=== PATIENT | female | born 1985 ===

== ENCOUNTER 2018-06-16 04:29 | Inpatient (IN) | payer MEDICAID ==
[2018-06-16 05:14] VITALS: BMI 25.6
[2018-06-16] MEDS ORDERED: Phenaphthazine-PH Test Paper VI ONE (05:27)
[2018-06-16] MEDS ORDERED: Penicillin G Potassium 5 MU in Sodium Chloride 0.9% 50 ML IVPB ONE (05:48)
[2018-06-16] MEDS ORDERED: Oxytocin 30 units/LR 500ML 30 U/500 ML BAG IV ONE ×2 (05:48→06:40)
[2018-06-16] MEDS ORDERED: Tdap Vaccine 0.5 ml Vial (10-64 yrs) IM ONE (05:58)
[2018-06-16] MEDS ORDERED: Penicillin G 5 Million Unit Vial IVPB ONE (06:45)
[2018-06-16 07:08] VITALS: RESP 20; O2SAT 100
[2018-06-16 07:14] LABS: BASO % 0.4 % (0.0-2.0); EOS # 0.5 K/uL (0.0-0.7); EOS % 4.2 % (0.0-4.0); HEMOGLOBIN 11.6 g/dL (12.0-16.0); LYMPH # 2.2 K/uL (1.0-4.3); MEAN CORPUSCULAR HEMOGLOBIN 24.2 pg (27.0-31.0); MEAN CORPUSCULAR HGB CONC 32.2 g/dL (33.0-37.0); MEAN PLATELET VOLUME 9.2 fl (7.2-11.7); MONO # 0.7 K/uL (0.0-0.8); MONO % 5.9 % (0.0-10.0); NEUT # 8.9 K/uL (1.8-7.0); NEUT % 71.5 % (50.0-75.0); RBC 4.79 Mil/uL (3.80-5.20); RED CELL DISTRIBUTION WIDTH 22.7 % (11.5-14.5); WHITE BLOOD COUNT 12.4 K/uL (4.8-10.8)
[2018-06-16] MEDS ORDERED: Lactated Ringer's 1,000 ML IV SCH ×2 (07:30→17:38)
--- NOTE | 2018-06-16 08:47 | OBPN ---
Datetime: 06/16/2018 08:40 IP Progress Impression: Normal progression of labor; Reassuring heart rate IP Procedures: Sterile Vag Exam Membranes, Provider: Ruptured Amniotic Fluid Color, Provider: Clear Contraction Comments Provider: Q2-5 FHR - Baseline A Provider: 130 Gestation - Est Wks by US: 39.5 Presentation-Admit: Vertex IP Progress Note Comment: Pt reports feeling some [elvic cramps. Feels good movements O: Appears well Chest: CTA B/L Abd: Soft, Nt, BS- presents. SVE: 5-6/70/-3, VTx Assessment: IUP at 39weeks SROM Previous C/S X1, X3 requesting a repeat Reassuring FHR. Plan: Continue monitoring the progress of labor. NICHD Accel Fetus A IP Provider: 15X15 FHR Category Provider Fetus A: Category I NICHD Variability Prov Fetus A: Moderate 6-25bpm Dilatation, Provider: 5-6 Effacement, Provider: 70 Station, Provider: -3 NICHD Decel Fetus A IP Provider: None Datetime: 06/16/2018 05:16 Pool Provider: Positive Vital Signs Provider: Reviewed; Within Normal Limits
--- NOTE | 2018-06-16 08:53 | OBADHP ---
Datetime: 06/16/2018 08:40 Presentation-Admit: Vertex FHR - Baseline A Provider: 130 Amniotic Fluid Color, Provider: Clear Membranes, Provider: Ruptured Contraction Comments Provider: Q2-5 Gestation - Est Wks by US: 39.5 NICHD Variability Prov Fetus A: Moderate 6-25bpm NICHD Accel Fetus A IP Provider: 15X15 FHR Category Provider Fetus A: Category I NICHD Decel Fetus A IP Provider: None Dilatation, Provider: 5-6 Effacement, Provider: 70 Station, Provider: -3 Datetime: 06/16/2018 05:16 Admit Comment, IP Provider: 33 yo 39.5wk based on LINSEY 06/18/18, confirmed by LMP 09/21/17 and U/S 01/25/18. Patient states she has been having painful contractions since 2am and she felt a gush of flush. Denies vaginal bleeding. Reports good movement. Dr. Leesa Rollins is her doctor at [facility]. Patients goal is to deliver without an epidural. Denies headache, blurry, vision, SOB,Chest pain, NVDC, pain with urination. 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 PMHx- Varicose veins, Anemia Meds- Prenatals, Fe Allergies- Asprin- lip swelling FHx: None Social Hx: Denies smoking, drugs or alcohol Surg Hx: C- section 2010 Hosp: None A/P 39.5wk IUP here for contractions since 2 am and SROM r/o active labor Previous Section X1, X3, Requesting a repeat Plan: Admit to LND Consent - Montior Monitor the progress of labor. Courtney Stiles PGY-1 Reviewed and examined with Dr. Russell Attending Note: Patient was seen and examined with the resident and I agree with the above assessment. Extremities - PN: Abnormal Abdomen - PN: Normal Lungs - PN: Normal Heart - PN: Normal HEENT - PN: Normal General - PN: Normal Comments, ACOG Physical Exam: -Right LE foot swelling L>R -Varicose veins - Vaginal growth on outer R labia Pool Provider: Positive IP Hx Assessment: The History has been Reviewed and is Current Vital Signs Provider: Reviewed; Within Normal Limits IP Chief Complaint: Uterine contractions; Suspected ruptured membranes; Maternal discomfort EGA AdmitDate IP: 39.5 IP Adm Impression: Term, intrauterine ; Ruptured Membranes IP Admit Plan: Admit to unit; Initiate labor protocol; Initiate protocol
[2018-06-16] MEDS ORDERED: ceFAZolin IV 2 gm in Dextrose 2 GM/50 ML BAG IVPB ONE ×2 (12:18→12:19)
[2018-06-16] MEDS ORDERED: Lactated Ringer's 1,000 ML IV ONE (12:29)
--- NOTE | 2018-06-16 12:32 | OBPN ---
Datetime: 06/16/2018 12:25 IP Progress Impression Other: Loss of Presentation IP Progress Impression: Reassuring heart rate; Rupture of membranes IP Procedures: Sterile Vag Exam IP Progress Plan: Deliver- Section Contraction Comments Provider: Q 2-4 FHR - Baseline A Provider: 140s IP Progress Note Comment: Patient reported feeling some pelvic cramps but intensity have gone down. FHR- Category 1 TOCO - Q 2-3 SVE: 6/presenting part not felt at this time/ Possibility of impending uterine scar rupture. The risks and benefits of delivery of the baby offered at this time. Patient consents to delivery and signs a consent form. Plan Prepare for Section. consents NICHD Accel Fetus A IP Provider: 15X15 FHR Category Provider Fetus A: Category I NICHD Variability Prov Fetus A: Moderate 6-25bpm Dilatation, Provider: 6 Effacement, Provider: 80 NICHD Decel Fetus A IP Provider: None
[2018-06-16] MEDS ORDERED: Morphine 1 mg/ml preservative-free Inj(Duramorph) ONE (12:38)
[2018-06-16] MEDS ORDERED: DiphenhydrAMINE 50 mg/ml Inj IVP PRN ×2 (13:35→17:38)
[2018-06-16] MEDS ORDERED: Morphine 1 mg/ml preservative-free Inj(Duramorph) IT ONE ×2 (13:35→17:38)
[2018-06-16] MEDS ORDERED: Cellulose Hemostat 2X3 Sheet ONE (13:53)
[2018-06-16] MEDS ORDERED: Morphine 5 mg/10 ml preservative-free Inj(Duramorph) ONE (14:20)
--- NOTE | 2018-06-16 14:46 | OBDS ---
DELIVERY PERSONNEL Delivery Doctor: Ernestina Russell MD Scrub Nurse: Gretta Dupont OBT Medical Diagnostic Radiographer: Laurel Fisher RN Anesthesiologist: Dr. Rodriguez Resident: Dr. Mendez MATERNAL INFORMATION Delivery Anesthesia: Spinal Medications in Delivery: Pitocin 20 units Maternal Complications: None Provider Comments: Repeat Section with delivery of a viable female with BW of 2770gm s and score of 9 and 9. Baby delivered in the left occipitoposterior positioning. Two broad adh esive bands between the ant uterus and abdominal wall seperated. EBL- 600mls Patient tolerated the procedure well. LABOR SUMMARY EDC: 06/18/2018 00:00 No. Babies in Womb: 1 Attempted: Yes Labor Anesthesia: None LABOR INFORMATION Reason for Induction: Not Applicable Oxytocin: N/A Group B Beta Strep: Done, Result Unknown Steroids Given: None Reason Steroids Not Administered: Not Applicable MEMBRANES Membranes Rupture Method: Spontaneous Rupture of Membranes: 06/16/2018 04:00 Length of Rupture (hrs): 9.35 Amniotic Fluid Color: Clear Amniotic Fluid Amount: Small Amniotic Fluid Odor: None STAGES OF LABOR Stage 3 hrs: 0 Stage 3 min: 1 CSECTION DELIVERY Primary Indication: Other Other Primary Indication: Failed - loss of presentation CSection Urgency: Emergency CSection Incidence: Repeat Labor: Labor Elective: Failed CSection Incision: Lower Uterine Transverse Uterine Closure: Double-layer closure BABY A INFORMATION Delivery Date/Time: 06/16/2018 13:21 Method of Delivery: Born in Route : No : Failed Forceps: N/A Vacuum Extraction: N/A Shoulder Dystocia : No SHOULDER DYSTOCIA BABY A Delivery Date/Time: 06/16/2018 13:21 PRESENTATION/POSITION BABY A Presentation: Cephalic Cephalic Presentation: Vertex PLACENTA INFORMATION BABY A Placenta Delivery Time : 06/16/2018 13:22 Placenta Method of Delivery: Spontaneous Placenta Status: Delivered SCORES BABY A Heart Rate 1 min: >100 bpm Resp Effort 1 min: Good Cry Reflex Irritability 1 min: Cough or Sneeze or Pulls Away Muscle Tone 1 min: Active Motion Color 1 min: Body [place], Extremities Blue Resuscitation Effort 1 min: Tactile Stimulation SCORE 1 MIN: 9 Heart Rate 5 min: >100 bpm Resp Effort 5 min: Good Cry Reflex Irritability 5 min: Cough or Sneeze or Pulls Away Muscle Tone 5 min: Active Motion Color 5 min: Body [place], Extremities Blue SCORE 5 MIN: 9 INFANT INFORMATION BABY A Gestational Age at Delivery: 39.0 Gestational Status: Term Infant Outcome : Liveborn Condition : Stable Sex: Female IDENTIFICATION/MEDS BABY A ID Band Number: [id number] ID Band Location: Left Leg; Left Arm WEIGHT/LENGTH BABY A Infant Birthweight (gms): 2770 Weight (lb): 6 Weight (oz): 2 CORD INFORMATION BABY A No. Cord Vessels: 3 Nuchal Cord : N/A Cord Blood Taken: N/A Infant Suction: None ASSESSMENT BABY A Complications: None Physical Findings at Delivery: Within Normal Limits Respirations: Appears Normal Final Block Press Operator/ALS Called : No Infant Care By: Selina Hanley Transferred To: [facility]
--- NOTE | 2018-06-16 14:52 | PCM.SURG1 ---
Surgeon's Initial Post Op Note - Surgeon's Notes Surgeon: Dr Russell Boiler Shop Supervisor: Dr Chirinos( Family Practice Resident)Cheryl Type of Anesthesia: Spinal Anesthesia Administered By: Dr Rodriguez Pre-Operative Diagnosis: IUP at 39.5wks, previous c/s, Failed with inaccessible presentation Operative Findings: Live female infant with BW of 2770gm and scores of 9 and 9 delivered in the left occipitoposterior position, thin lower uterine segment, clear amniotic fluid, fundal placenta. Two broad adhesive bands betwwen the anterior surface of the uterus and the anterior abdominal wall preventing the exteriorization of the uterus. These were seperated after repair of uterine incision. Uterus, bilateral ovaries and fallopian tubes appeared normal. IV Fluid intake 2100mls. EBL - 600mls. Urine Output 700mls Post-Operative Diagnosis: Same as preop diagnosis Operation Performed: Repeat Low transverse Section. Release of Pelvic Adhesions Specimen/Specimens Removed: Umbilical cord blood Estimated Blood Loss: EBL {In ML}: 600 Blood Products Given: N/A Post-Op Condition: Good Date of Surgery/Procedure: 06/16/18 Time of Surgery/Procedure: 14:59
--- NOTE | 2018-06-17 02:34 | OP ---
PROCEDURE DATE: 06/16/2018 PREOPERATIVE DIAGNOSIS: Intrauterine at 39 weeks and 5 days with a history of previous section, failed vaginal after section with inaccessible presenting part. POSTOPERATIVE DIAGNOSIS: Intrauterine at 39 weeks and 5 days with a history of previous section, failed vaginal after section with inaccessible presenting part. PROCEDURES DONE: Repeat section and release of dense pelvic adhesions performed on 06/16/2018. SURGEON: Stiven Russell MD SHIPPER: Dr. Chirinos (family practice resident), Cheryl( Television Analyzer). TYPE OF ANESTHESIA: Spinal. ANESTHESIA ADMINISTERED BY: Dr. Rodriguez. OPERATIVE FINDINGS: A live female with weight of 2770 gm, scores of 9 in the first and fifth minutes respectively, delivered in the left occiput posterior positioning. The lower uterine segment was very thin with clear amniotic fluid and fundal placenta. There were two broad adhesive bands between the anterior surface of the uterus and anterior abdominal wall preventing brining out the uterus after delivery of the baby. These were after repair of the uterine incision. The uterus, bilateral ovaries and fallopian tubes appeared normal. INTRAVENOUS FLUID INTAKE: 2100 mL. ESTIMATED BLOOD LOSS: 600 mL. URINE OUTPUT: 700 mL. COMPLICATIONS: There were no complications. DESCRIPTION OF PROCEDURE: After obtaining an informed consent, the patient was sent to the OR with IV running and Vazquez catheter in place. After placing the spinal anesthesia, the patient was put on the OR table in a supine position with the left lateral tilt. The patient was then prepped and draped in the usual sterile fashion. A Pfannenstiel skin incision was made using the scalpel through the old Pfannenstiel incisional scar, and this incision was extended through the subcutaneous tissues till the rectus fascia was identified. Using a Bovie device, a transverse incision was made in the mid portion of the rectus fascia, and this was extended to both sides using a sharp dissection with both Bovie device and De Leon scissors. The rectus fascia was then lifted off the rectus muscles both superiorly and inferiorly by means of a blunt dissection and sharp dissection with De Leon scissors. The rectus muscles were in the midline to expose the peritoneum, which was held between two Hannah clamps and sharply entered and with good visualization of the bladder. Once the abdominal cavity was entered, the above findings were noted. A low transverse incision using the scalpel was made in the lower uterine segment. This incision was sent through the myometrial fibers which were very thin until the amniotic membranes were seen. The incision was extended to both sides in a blunt fashion, and the baby which was positioned in the left occiput posterior positioning was delivered. The 3-vessel cord was clamped and cut. The mouth and nostrils of baby were bulb suctioned. Baby cried immediately after . Umbilical cord blood was obtained for routine analysis. The placenta was manually removed from the uterus. There were two broad bands of adhesive tissue between the anterior surface of the uterus and the anterior abdominal wall, which made exteriorization of the uterus impossible. The uterine cavity was cleaned of all debris at this point with dry laparotomy pads. The uterine incision was closed in two layers; the first layer with Vicryl 0 used in an interlocking fashion and the second layer Vicryl 0 in a running fashion and imbricating the first layer. This was performed until hemostasis was achieved. Once hemostasis was achieved, the two broad bands of adhesions were identified, and each side was clamped with Hannah clamp, dissected and then doubly ligated using Vicryl #0. Irrigation of the incision area was performed once hemostasis had been achieved. Attention was turned onto the anterior abdominal wall which was closed in layers with 2-0 Vicryl for the peritoneum and the rectus muscles. The rectus fascia was reapproximated using Vicryl #0. The subcutaneous tissue was brought together using #2-0 plain. The skin was closed in a subcuticular fashion using #4-0 Monocryl. All counts of instruments, laparotomy pads, and needles used were correct x3. The patient was sent to the recovery room awake and in stable condition. Stiven Russell MD RICOC
[2018-06-17 06:35] LABS: BASO # 0.1 K/uL (0.0-0.2); BASO % 0.3 % (0.0-2.0); EOS # 0.2 K/uL (0.0-0.7); EOS % 1.2 % (0.0-4.0); HEMOGLOBIN 11.1 g/dL (12.0-16.0); LYMPH # 1.2 K/uL (1.0-4.3); LYMPH % 6.9 % (20.0-40.0); MEAN CELL VOLUME 74.7 fl (81.0-99.0); MEAN CORPUSCULAR HEMOGLOBIN 24.5 pg (27.0-31.0); MEAN CORPUSCULAR HGB CONC 32.7 g/dL (33.0-37.0); NEUT # 14.9 K/uL (1.8-7.0); NEUT % 85.6 % (50.0-75.0); PLATELET COUNT 164 K/uL (130-400); RBC 4.55 Mil/uL (3.80-5.20); RED CELL DISTRIBUTION WIDTH 21.7 % (11.5-14.5); WHITE BLOOD COUNT 17.4 K/uL (4.8-10.8)
[2018-06-17] MEDS: Oxycodone/Acetaminophen 5/325 mg Tab PO PRN ×4 (08:39→23:53)
[2018-06-17 11:08] LABS: BANDS 2 % (0-2); EOSINOPHIL 2 % (0-7); LYMPHOCYTE 5 % (20-50); MONOCYTE 5 % (0-10); NEUTROPHIL 85 % (42-75); PLATELET ESTIMATE NORMAL (NORMAL); REACTIVE LYMPHOCYTES 1 % (0-0); TOTAL CELLS COUNTED 100
[2018-06-17 11:09] LABS: ANISOCYTOSIS MARKED; HYPOCHROMIC SLIGHT; OVALOCYTES SLIGHT; SCHISTOCYTES SLIGHT; TEARDROP CELLS SLIGHT; TOXIC GRANULATION PRESENT
--- NOTE | 2018-06-17 18:49 | RAD ---
Date of service: 06/17/2018 HISTORY: right sided rhonchi COMPARISON: Frontal chest radiograph 05/08/2013. TECHNIQUE: Chest PA and lateral FINDINGS: LUNGS: No active pulmonary disease. PLEURA: No significant pleural effusion identified. No pneumothorax apparent. CARDIOVASCULAR: Normal. OSSEOUS STRUCTURES: No significant abnormalities. VISUALIZED UPPER ABDOMEN: Normal. OTHER FINDINGS: None. IMPRESSION: No interval acute cardiopulmonary disease appreciated.
[2018-06-18] MEDS: Oxycodone/Acetaminophen 5/325 mg Tab PO PRN ×4 (06:06→20:35)
--- NOTE | 2018-06-18 12:46 | OBPPN ---
Datetime: 06/18/2018 08:03 PP Pain Prov: Within normal limits PP Nausea Prov: Denies PP Flatus Prov: Yes PP BM Prov: No PP Heart Prov: Normal PP Lungs Prov: Normal PP Abdomen/Uterus Prov: Normal PP Lochia Prov: Normal PP Extremities Prov: Abnormal PP C/S Incision Prov: Normal PP Progress Prov: Normal PP Comments Phys Exam Prov: LE edema L>R, varicose veins PP Impression Prov: Normal progression PP Plan Prov: Continue present management PP Progress Note Prov: S: Pt is a 33 y/o s/p C section after failed repeat on 06/16/18, P atient is Post OP day 2. Seen and examined at bedside this am. Patient denies any significant overni ght events. Reports mild pelvic pain which is controlled with pain medicine. OOB/Ambulation well wit hout dizziness. Breast/ Bottle feeding without difficulty. Tolerating regular diet. Lochia is similar to menses. Voiding freely with no blood noted, no bowel movement, passing gas per rectum. Denies fev er/chills, diarrhea, nausea/vomiting, CP/SOB , Lightheadedness, calf pain. O: BP: 118/69, HR:74, T98.3F CBC 11.1/34.0 , blood type: A+, rubella: Immune PHYSICAL EXAM: GEN: AAOx3, Resting comfortably in bed, NAD HEENT: NCAT, White sclera, pink conjunctiva, oral mucosa moist. LUNGS: CTA B/L, no wheezing, rhonchi, or rales, B/L chest rise CVS: RRR, S1, S2, No murmurs, rubs, gallops ABD: ND, +BS, firm fundus @ umbilical level. Soft, appropriate TTP, Incision: clean dry intact, no drainage, blood EXT: + LE edema L>R, + varicose veins, negative Myron's sign, calves non tender NEURO/Psych: no gross focal deficit, preserved affect and mood. A/P 33 y/o s/p C section after failed on 06/16/18, Patient is Post OP day 2@ 13:21 . Pt afe brile, tolerating pain with medication, tolerating regular diet, adequate urine output. Encourage and ambulation Percocet 5/325 mg 1-2 tablets po q/ 6 hrs if mod/severe pain Tylenol 325mg PO Q 4hrs prn mild pain PNV 1 tab po daily Colace and Rxxdxzt07.2mg PO HS for constipation Simethicone for flatulence Post op contraception- hasn't decided yet F/U at 1 wk wound check and in 4-6 weeks for post- visit. Courtney Stiles M.D. PGY-1 Patient was seen and examined with Dr. Moreira OB Hospitalist on-call I saw and examined this patient on rounds this morning. Agree with PGY1 saqib Augustine PP Procedures: None Vital Signs Provider PP: Reviewed; Within Normal Limits
[2018-06-19] MEDS: Oxycodone/Acetaminophen 5/325 mg Tab PO PRN ×2 (04:24→08:46)
[2018-06-19 18:41] VITALS: BP 112/70; PULSE 77; TEMP 98.3
== END 2018-06-19 13:15 | disposition home or self-care (01) | DRG 371 ==
LOC: H.EROB2 04:29 → H.L&D 05:48 → H.OB/GYN 17:36
PROVIDERS: ADMIT Obstetrics & Gynecology; ATTEND Obstetrics & Gynecology
PROC: 10D00Z1 Extraction of Products of Conception, Low, Open Approach (ICD-10-PCS; principal; 2018-06-16)
PROC: 4A1HXCZ Monitoring of Products of Conception, Cardiac Rate, External Approach (ICD-10-PCS; 2018-06-16)
DX: O34.211 Maternal care for low transverse scar from previous cesarean delivery (principal); N85.8 Other specified noninflammatory disorders of uterus; Z37.0 Single live birth; Z3A.39 39 weeks gestation of pregnancy; K66.0 Peritoneal adhesions (postprocedural) (postinfection)